=== PATIENT | female | born 1970 | race Caucasian/White ===

== ENCOUNTER 2017-12-10 05:58 | Day surgery (SDC) | payer OTHER ==
[2017-12-10] MEDS ORDERED: LACTATED RINGER'S 1,000 ML IV* (06:00)
[2017-12-10] MEDS ORDERED: MIDAZOLAM 1 MG/ML 2 ML INJ (07:42)
[2017-12-10] MEDS ORDERED: KETOROLAC 30 MG INJ (07:42)
[2017-12-10] MEDS ORDERED: FENTAnyl 50 MCG/ML VIAL (07:42)
[2017-12-10] MEDS ORDERED: PROPOFOL 20 ML (07:42)
[2017-12-10] MEDS ORDERED: ONDANSETRON 4 MG INJ (07:42)
[2017-12-10] MEDS ORDERED: METOCLOPRAMIDE 10 MG INJ (07:42)
[2017-12-10] MEDS ORDERED: HYDROmorphONE (0.2 MG/ML) 10ML SYG IV ×2 (08:30)
[2017-12-10] MEDS ORDERED: OXYCODONE/ACETAMINOPHEN (5/325) TAB PO ×2 (08:30)
[2017-12-10] MEDS ORDERED: MEPERIDINE 25 MG INJ IV (08:30)
[2017-12-10] MEDS ORDERED: DIPHENHYDRAMINE 50 MG INJ IV (08:30)
[2017-12-10] MEDS: HYDROmorphONE (0.2 MG/ML) 10ML SYG IV ×2 (09:21→09:36)
[2017-12-10] MEDS: ONDANSETRON 4 MG INJ IV (09:21)
[2017-12-10] MEDS ORDERED: CEFAZOLIN 1 GM INJ (10:13)
== END 2017-12-10 11:09 | disposition home or self-care (01) ==
LOC: SDS 05:58
DX: T83.32XA Displacement of intrauterine contraceptive device, initial encounter (principal); Y84.8 Other medical procedures as the cause of abnormal reaction of the patient, or of later complication, without mention of misadventure at the time of the procedure
CPT/HCPCS: 58562; 88300; 88305

== ENCOUNTER 2019-03-03 10:46 | Day surgery (SDC) | payer OTHER ==
[2019-03-03] MEDS: LACTATED RINGER'S 1,000 ML IV (06:00)
[2019-03-03] MEDS ORDERED: CEFAZOLIN 1 GM INJ (11:23)
[2019-03-03] MEDS ORDERED: PROPOFOL 20 ML (11:23)
[2019-03-03] MEDS ORDERED: FENTAnyl 50 MCG/ML VIAL (11:23)
[2019-03-03] MEDS ORDERED: MIDAZOLAM 1 MG/ML 2 ML INJ (11:23)
[2019-03-03] MEDS ORDERED: LIDOCAINE 2% (SDV) 5 ML INJ (11:23)
[2019-03-03] MEDS ORDERED: ONDANSETRON 4 MG INJ (11:24)
[2019-03-03] MEDS ORDERED: DEXAMETHASONE 4 MG/ML 5 ML INJ (11:24)
[2019-03-03] MEDS ORDERED: FAMOTIDINE 20 MG INJ (11:24)
[2019-03-03] MEDS ORDERED: METOCLOPRAMIDE 10 MG INJ (11:24)
[2019-03-03] MEDS ORDERED: OXYCODONE/ACETAMINOPHEN (5/325) TAB PO (11:30)
[2019-03-03] MEDS ORDERED: ONDANSETRON 4 MG INJ IV (11:30)
[2019-03-03] MEDS ORDERED: MEPERIDINE 25 MG INJ IV (11:30)
[2019-03-03] MEDS ORDERED: HYDROmorphONE 1 MG/5 ML IV SYRINGE IV (11:30)
[2019-03-03] MEDS: HYDROmorphONE 1 MG/5 ML IV SYRINGE IV ×2 (14:33→14:48)
[2019-03-03] MEDS: OXYCODONE/ACETAMINOPHEN (5/325) TAB PO (15:52)
== END 2019-03-03 16:20 | disposition home or self-care (01) ==
LOC: SDS 10:46
DX: N92.1 Excessive and frequent menstruation with irregular cycle (principal)
CPT/HCPCS: 58563; 88305